=== PATIENT | male | born 1955 | race Caucasian/White ===

== ENCOUNTER → 2023-08-01 | Outpatient (CLI) | payer BC ==
--- NOTE | 2023-08-01 10:16 | US ---
EXAMINATION TYPE: US abdomen comp/pelvis limited DATE OF EXAM: 08/01/2023 COMPARISON: NONE CLINICAL INDICATION: Male, 67 years old with history of R10.31 RLQ PAIN; Pt states RLQ pain x 1-2 yea rs EXAM MEASUREMENTS: Liver Length: 13.9 cm Gallbladder Wall: 0.2 cm CBD: 0.4 cm Spleen: 8.4 cm Right Kidney: 11.5 x 4.9 x 4.3 cm Left Kidney: 11.0 x 5.5 x 5.1 cm Pancreas: 3mm panc duct, tail obscured by overlying bowel gas Liver: Multiple cysts left lobe with complex cystic lesion left lobe= 3.3 x 1.8 x 2.8 cm Gallbladder: wnl CBD: wnl Spleen: wnl Right Kidney: wnl , no evidence of obstructive uropathy. Left Kidney: wnl, upper pole gassed out Upper IVC: wnl Abd Aorta: Wall calcifications, bifurcation gassed out Bladder: wnl Bilateral Jets Seen only left jet visualized RLQ scanned in area of pt's pain with valsalva maneuver- no evidence of hernia IMPRESSION: No evidence for acute process. 1. Multiple hepatic cysts one within septation versus adjacent structures
== END | disposition home or self-care (01) ==
LOC: RADUSWWP 08:57
PROVIDERS: ATTEND Family Medicine
DX: K76.89 Other specified diseases of liver (principal)
CPT/HCPCS: 76700; 76857

== ENCOUNTER → 2023-08-24 | Outpatient (CLI) | payer BC ==
--- NOTE | 2023-08-28 18:24 | CTL ---
EXAMINATION TYPE: CT Low Dose Lung DATE OF EXAM ORDERED: 08/24/2023 HISTORY: History of tobacco use for 15 years 1 pack per day. Lung cancer screening CT DLP: 57.[address] CTDI: 1.5 mGy Automated exposure control for dose reduction was used. SCREENING VISIT: First screening visit COMPARISON: None TECHNIQUE: Low dose computed tomography scan was performed through the chest at 1 mm thick sections a nd reconstructed images in multiple planes at 1 mm and [address] DIAGNOSTIC QUALITY: Satisfactory FINDINGS: Nodules: Few scattered calcified granulomas. No clinically significant solid pulmonary nodules identified. LUNGS: COPD: Severity: Moderate to severe Fibrosis: Severity: None Lymph nodes: None Other findings: None RIGHT PLEURAL SPACE: Effusion: None Calcification: None Thickening: Apical scarring Pneumothorax: None LEFT PLEURAL SPACE: Effusion: None Calcification: None Thickening: Apical scarring Pneumothorax: None HEART: Heart Size: Normal Coronary Calcification: Small Pericardial Effusion: None OTHER FINDINGS: Upper abdomen: None Bony thorax: None Supraclavicular region: None Other: Trace secretion within the right mainstem bronchus. IMPRESSION: 1.No clinically significant pulmonary nodule is identified. Couple of calcified granulomas. 2. Moderate to severe COPD changes. CT LUNG RAD AND CT CHEST RECOMMENDATION: Lung-Rad 2 Benign Appearance or Behavior: Continue annual sc reening with LDCT in 12 months. S Modifier (other clinically significant findings): None
== END | disposition home or self-care (01) ==
LOC: RADCTMAIN 08:53
PROVIDERS: ATTEND Family Medicine
DX: Z12.2 Encounter for screening for malignant neoplasm of respiratory organs (principal); J44.9 Chronic obstructive pulmonary disease, unspecified; J84.10 Pulmonary fibrosis, unspecified; F17.210 Nicotine dependence, cigarettes, uncomplicated
CPT/HCPCS: 71271